=== PATIENT | male | born 1960 | race Caucasian/White ===

== ENCOUNTER 2022-02-04 22:28 | Emergency (ER) | payer OTHER ==
[2022-02-05 01:39] LABS: BASOPHIL 0.7 % (0-2); EOSINOPHIL 5.1 % (0-5); HCT 42.3 % (42.0-52.0); HGB 13.8 g/dl (13.2-18.0); LYMPHOCYTE 30.1 % (15-48); MCH 28.5 pg (25.0-31.0); MCHC 32.6 g/dL (32.0-36.0); MCV 87.2 fL (78.0-100.0); MONOCYTE 8.3 % (0-12); MPV 9.7 fL (6.0-9.5); NEUTROPHIL 55.7 % (41-80); NRBC 0; PLT 260 K/uL (150-400); RBC 4.85 M/uL (4.70-6.00); RDW 13.1 % (11.5-14.0); WBC 6.9 K/uL (4.0-10.5)
[2022-02-05 02:28] LABS: BILIRUBIN NEGATIVE (NEGATIVE); BLOOD TRACE-INTACT Ery/uL (NEGATIVE); CLARITY CLEAR (CLEAR); COLOR YELLOW (YELLOW); GLUCOSE (U) NORMAL (NORMAL); LEUKOCYTES NEGATIVE Leu/uL (NEGATIVE); NITRITE NEGATIVE (NEGATIVE); PROTEIN NEGATIVE (NEGATIVE); UROBILINOGEN 0.2 mg/dL (0.2-1.0); pH 6.5 (5.0-9.0)
[2022-02-05 02:32] LABS: ALBUMIN 3.7 g/dL (3.4-5.0); BILIRUBIN - TOTAL 0.6 mg/dL (0.2-1.0); CREATININE 0.94 mg/dL (0.67-1.17); GLOBULIN (CALCULATION) 3.4 g/dL; TOTAL PROTEIN 7.1 g/dL (6.4-8.2)
[2022-02-05 02:46] LABS: CORONAVIRUS 2019 SARS-COV-2 NEGATIVE (NEGATIVE); INFLUENZA A NAA NEGATIVE (NEGATIVE)
[2022-02-05 03:02] LABS: BACTERIA TRACE
== END 2022-02-05 03:25 | disposition home or self-care (01) ==
LOC: FER 22:28
PROVIDERS: Internal Medicine
DX: R22.43 Localized swelling, mass and lump, lower limb, bilateral (principal); R42 Dizziness and giddiness; Z20.822 Contact with and (suspected) exposure to COVID-19; Z28.310 Unvaccinated for COVID-19
CPT/HCPCS: 36415; 70450; 80053; 81001; 83880; 84145; 84484; 85025; 85379; 93005; U0002